=== PATIENT | female | born 1995 | race Two or more races ===

== ENCOUNTER 2024-01-12 18:24 | Emergency (ER) | payer MEDICAID, OTHER ==
[~2024-01-12] VITALS: Ht 157.5 cm; Wt 77.0 kg
[2024-01-12] MEDS ORDERED: ACET-1304 PO (19:36)
[2024-01-12] MEDS ORDERED: BISA1TAB6 PO (19:36)
[2024-01-12] MEDS ORDERED: PANT40TA2 PO (19:36)
[2024-01-12] MEDS: ONDANSETRON ODT 4 MG TAB PO ONE (21:54)
[2024-01-12 21:56] VITALS: BP 119/72; TEMP 98
[2024-01-12] MEDS: MAGNESIUM CITRATE SOLUTION 300 ML BTL PO ONE (21:56)
[2024-01-12] MEDS: KETOROLAC TROMETH 60MG/2ML VIAL IM ONE (21:56)
[2024-01-12 21:57] VITALS: PULSE 79; RESP 16; O2SAT 98
[2024-01-12] MEDS: GOLYTELY 4L KIT PO ONE (22:07)
== END 2024-01-12 22:10 | disposition home or self-care (01) ==
LOC: ER 18:24 → EDBD 18:24 → ER 22:10
DX: K59.00 Constipation, unspecified (principal)
CPT/HCPCS: 96372; 99283; J1885; Q0162